=== PATIENT | male | born 1970 | race Caucasian/White ===

== ENCOUNTER 2021-08-27 16:25 | Emergency (ER) | payer BC, SELFPAY ==
[2021-08-27 17:12] VITALS: BP 137/91; PULSE 106; RESP 18; TEMP 37.1; O2SAT 98; BMI 27.1
[2021-08-27 23:14] LABS: COVID-19 Test Positive (Negative); IDNOW Serial# 9DD0AD1C
--- NOTE | 2021-08-27 23:49 | ED.GENADULT ---
HPI - General Adult General Chief complaint: General Medical Stated complaint: chills sore throat cough Time Seen by Provider: 08/27/21 23:49 History of Present Illness HPI narrative: Patient complainsof runny nose body aches fatigue for 2 days, no shortness of breath no chest pain no vomiting no diarrhea Related Data Previous Rx's Medication Instructions Recorded acetaminophen 500 mg tablet 1,000 mg PO QID PRN #30 tab 08/28/21 oxycodone 5 mg tablet 5 mg PO Q6H PRN #14 tab 08/28/21 Allergies Allergy/AdvReac Type Severity Reaction Status Date / Time No Known Allergies Allergy Verified 08/27/21 17:14 Review of Systems Review of Systems: Positive for body aches fatigue and runny nose Negatives are no fever no chills no dizziness no weakness no fainting no feeling faint no headache no neck pain no stiff neck no chest pain no shortness of breath no abdominal pain no nausea or vomiting Yes all other systems are reviewed and are negative PMFSH Past Medical History Source: nursing notes reviewed Medical History (Updated 08/28/21 @ 00:29 by AZALIA Finley) No known health problems Social History Social History Advance Directives: No Advance Directives Information Provided: Yes Physical Exam Vital Signs: Vital Signs: Last Vital Signs Temp 99.7 F 08/28/21 00:38 Pulse 92 08/28/21 00:38 Resp 16 08/28/21 00:38 BP 115/93 H 08/28/21 00:38 Pulse Ox 98 08/28/21 00:38 BMI result Body Mass Index 27.1 General appearance comfortable no distress The eyes no redness or discharge The neck is supple The chest is clear bilaterally The heart no murmur Abdomen soft nontender Extremities full range of motion x4 Course Course Course Narrative: COVID positive patient is well-appearing and safe for discharge Medical Decision Making Lab Data Labs: Lab Results 08/27/21 Range/Units 22:20 COVID-19 ([facility]) Positive A (Negative) COVID-19 Clin Com See Note Discharge Plan Discharge Clinical Impression: COVID-19 Patient Disposition: Home, Self-Care Additional Instructions: Testing was positive for COVID Return any time for difficulty breathing or any worse condition COVID is very contagious so quarantine for 10 days Prescriptions: New acetaminophen 500 mg tablet 1,000 mg PO QID PRN (Reason: pain) Qty: 30 RF: 0 oxycodone 5 mg tablet 5 mg PO Q6H PRN (Reason: pain) Qty: 14 RF: 0 Stand Alone Forms: Work/School Release Interventions: ED Discharge Assessment Last Done: 08/28/21 00:43 Discharge Date/Time: 08/28/21 00:43
[2021-08-28 00:38] VITALS: BP 115/93; PULSE 92; RESP 16; TEMP 37.6; O2SAT 98
== END 2021-08-28 00:43 | disposition home or self-care (01) ==
PROVIDERS: Emergency Provider Emergency Medicine Emergency Medical Services
DX: U07.1 COVID-19 (principal)
CPT/HCPCS: 36415; 87635; 99283; 99284

== ENCOUNTER 2022-06-03 11:52 | Outpatient (REF) | payer OTHER, SELFPAY ==
[2022-06-03 12:32] LABS: COVID-19 Test Positive (Negative)
== END 2022-06-03 11:53 | disposition home or self-care (01) ==
LOC: HO.LAB 11:52
PROVIDERS: Visit Provider Internal Medicine
DX: Z20.822 Contact with and (suspected) exposure to COVID-19 (principal)
CPT/HCPCS: 87635; C9803